=== PATIENT | male | born 1990 | race Caucasian/White ===

== ENCOUNTER 2024-10-24 04:41 | Emergency (ER) | payer OTHER ==
[2024-10-24] MEDS ORDERED: Sodium Chloride 0.9% 10 ML Syringe FLUSH PRN (05:01)
[2024-10-24] MEDS: Metoclopramide 10 MG/2 ML SDV IVPUSH ONE (05:15)
[2024-10-24] MEDS: HYDROmorphone 0.5 MG/0.5 ML Syringe IVPUSH ONE (05:15)
[2024-10-24] MEDS: Sodium Chloride 0.9% 1,000 ML IV STA (05:18)
[2024-10-24 05:58] LABS: BASOPHILS ABSOLUTE AUTO 0.1 K/mm3 (0.0-0.2); BASOPHILS PERCENT AUTO 0.3 % (0.0-1.0); EOSINOPHILS PERCENT AUTO 0.3 % (0.0-6.0); HEMATOCRIT 49.1 % (42.0-52.0); HEMOGLOBIN 17.1 gm/dl (14.0-18.0); IMMATURE GRAN ABSOLUTE AUTO 0.04 K/mm3 (0.00-0.05); IMMATURE GRAN PERCENT AUTO 0.3 % (0.0-0.4); LYMPHOCYTES ABSOLUTE AUTO 1.4 K/mm3 (1.0-4.8); LYMPHOCYTES PERCENT AUTO 9.7 % (24.0-44.0); MEAN CORPUSCULAR HEMOGLOBIN 30.4 pg (28.0-32.0); MEAN CORPUSCULAR HGB CONC 34.8 g/dl (32.0-36.0); MEAN CORPUSCULAR VOLUME 87.2 fl (83.0-99.0); MEAN PLATELET VOLUME 10.7 fl (9.4-12.4); MONOCYTES ABSOLUTE AUTO 0.8 K/mm3 (0.0-0.8); MONOCYTES PERCENT AUTO 5.4 % (0.0-8.0); NEUTROPHILS ABSOLUTE AUTO 12.6 K/mm3 (1.8-7.7); PLATELET COUNT,PLT 296 K/mm3 (150-400); RED BLOOD CELL COUNT 5.63 M/mm3 (4.52-5.90); WHITE BLOOD CELL COUNT,WBC 14.92 K/mm3 (3.9-11.3)
[2024-10-24 06:09] LABS: A/G RATIO 1.1 (1-2); ALBUMIN 4.4 g/dl (3.4-5.0); BILIRUBIN TOTAL 0.6 mg/dL (0.2-1.0); BUN/CREATININE RATIO 10.8 (14-18); CALCIUM 9.7 mg/dL (8.5-10.1); CREATININE 1.2 mg/dL (0.7-1.3); MAGNESIUM 1.8 mg/dL (1.8-2.4); PROTEIN TOTAL,TP 8.3 g/dl (6.4-8.2)
[2024-10-24] MEDS: Sodium Chloride 0.9% 1,000 ML ONE (06:23)
[2024-10-24] MEDS: Ondansetron 4 MG/2 ML SDV IVPUSH ONE (06:25)
[2024-10-24] MEDS: Sodium Chloride 0.9% 1,000 ML IV ONE (06:25)
== END 2024-10-24 07:11 | disposition home or self-care (01) ==
LOC: JD.ED 04:41
DX: K52.9 Noninfective gastroenteritis and colitis, unspecified (principal); Z79.899 Other long term (current) drug therapy; Z86.16 Personal history of COVID-19
CPT/HCPCS: 36415; 80053; 80307; 83735; 85025; 96361; 96374; 96375; 99284; J2405; J2765; J7030; 99283